=== PATIENT | male | born 1965 | race Two or more races ===

== ENCOUNTER 2023-12-11 14:34 | Emergency (ER) | payer MEDICAID, OTHER ==
[~2023-12-11] VITALS: Ht 172.7 cm; Wt 73.0 kg
[2023-12-11] MEDS: TETANUS-DIPTH-ACEL PERTUSSIS 0.5ML SYR Tdap IM ONE (17:06)
[2023-12-11] MEDS: ONDANSETRON ODT 4 MG TAB PO ONE (17:06)
[2023-12-11] MEDS: NEOMYCIN-BACITRACIN-POLYM UNITDOSE PKG TOP OINT TOP ONE (17:06)
[2023-12-11] MEDS: KETOROLAC TROMETH 60MG/2ML VIAL IM ONE (17:06)
[2023-12-11] MEDS ORDERED: IBUP-1454 PO (18:11)
[2023-12-11] MEDS ORDERED: BACIOIN15 TOP (18:11)
[2023-12-11] MEDS ORDERED: ACET500T58 PO (18:11)
[2023-12-11 18:17] VITALS: BP 109/67; PULSE 87; RESP 17; TEMP 98.7; O2SAT 98
== END 2023-12-11 18:18 | disposition home or self-care (01) ==
LOC: ER 14:34 → EDBD 14:34 → ER 18:18
DX: S16.1XXA Strain of muscle, fascia and tendon at neck level, initial encounter (principal); S50.12XA Contusion of left forearm, initial encounter; V43.52XA Car driver injured in collision with other type car in traffic accident, initial encounter; Y93.89 Activity, other specified; Y92.410 Unspecified street and highway as the place of occurrence of the external cause; Y99.8 Other external cause status
CPT/HCPCS: 72040; 73090; 90471; 90715; 96372; 99284; J1885; Q0162